=== PATIENT | male | born 1945 | race Caucasian/White ===

== ENCOUNTER 2017-05-05 16:45 | Emergency (ER) | payer MEDICARE, OTHER ==
[~2017-05-05 16:45] MED LIST: ASPIR 8181 M1 PO; CELEXA20 M2 PO; EC ASPIRIN325 MG PO; HYDROCHLOROTHIA25 M1 PO; LIPITOR40 M1 PO; LISINOPRIL; LOSARTAN POTAS100 M1 PO; PROTONIX40 M2 PO; TOPROL XL50 MG PO; ZESTORETIC1 TAB PO
[2017-05-11] MEDS ORDERED: VITAMIN D1000 UNI3 PO (11:18)
[2017-05-11] MEDS ORDERED: ZINC (11:19)
[2017-05-11] MEDS ORDERED: VITAMIN C500 M3 PO (11:19)
== END 2017-05-05 18:50 ==
LOC: EDMED 16:45
DX: K40.90 Unilateral inguinal hernia, without obstruction or gangrene, not specified as recurrent (principal); I10 Essential (primary) hypertension; E78.5 Hyperlipidemia, unspecified; Z98.890 Other specified postprocedural states; Z90.89 Acquired absence of other organs